=== PATIENT | female | born 1955 | race African-American/Black ===

== ENCOUNTER 2016-09-11 10:30 | Observation (INO) ==
[2016-09-11] MEDS ORDERED: ONDANSETRON 4 MG/2 ML VIAL IV STA (11:36)
[2016-09-11] MEDS ORDERED: ONDANSETRON 4 MG/2 ML VIAL ONE (11:37)
--- NOTE | 2016-09-11 12:07 | EKG Report ---
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
--- NOTE | 2016-09-11 13:05 | CT Report ---
Referring physician: Jessica Douglas Exam: CT brain without contrast Date: 09/11/2016 Comparison: None Reason: Headache, syncope Technique: Axial images of the head were obtained without the use of contrast. Total DLP was 970.10 mGy*cm. Findings: No hydrocephalus or midline shift is present. There is no evidence of an acute infarction, recent intracranial hemorrhage or abnormal mass effect. The osseous structures appear intact. The mastoid air cells and visualized paranasal sinuses are clear. Impression: No acute intracranial abnormality is identified. The CT exam was performed using one or more of the following dose reduction techniques: Automated exposure control and adjustment of the mA and/or kV according to patient size. PROCEDURE INTERPRETED AT [facility] DEPARTMENT OF RADIOLOGY Final Report Signed by: Dr. Isi Santiago
--- NOTE | 2016-09-11 13:09 | XRay Report ---
Exam: Chest 2 views Date: September 11, 2016 Comparison: Chest PA lateral April 22, 2008 Reason: Chest pain, syncope Findings: The cardiac silhouette is normal in size. No focal consolidation, pneumothorax or pleural effusion is identified. There is mild degenerative change at the thoracic spine, but no acute osseous process is seen. Surgical clips are noted within the right abdomen. Impression: No acute cardiopulmonary process is identified. PROCEDURE INTERPRETED AT [facility] DEPARTMENT OF RADIOLOGY Final Report Signed by: Dr. Paris Cuevas
[2016-09-11] MEDS ORDERED: ASPIRIN EC 325 MG TABLET PO STA (13:54)
[2016-09-11] MEDS ORDERED: ASPIRIN 325 MG TABLET ONE (14:09)
--- NOTE | 2016-09-11 14:25 | Emergency Department Note ---
Arrival - Arrival Chief Complaint: Dizziness Stated Complaint: nause,faint dizzy ED Nursing Triage Note: PT C/O DIZZINESS AND SYNCOPAL EPISODES 3-4 TIMES OVER THE PAST MONTH SINCE STARTING HARVONI FOR HEPATITS C. +NAUSEA. LAST EPISODE YESTERDAY. Mode of Arrival: Ambulatory Source: Patient Time Seen by Provider: 09/11/16 11:20 - History of Present Illness HPI Narrative: 61 y/o black female presents to the ER complaining of headache, nausea, dizziness, syncope, and midsternal chest pain. Symptom started 6 weeks ago after patient started taking Harvoni. Reports she has had 4 syncopal episodes in the last 6 weeks with the most recent episode happening yesterday. Chest pain has been intermittent. Patient describes chest pain as a "dull ache". Denies radiation of pain but reports dyspnea when climbing stairs. Past medical history significant for HTN, Hepatitis C, NIDDM, hypothyroidism, depression, chronic back pain. Primary Care Physician: Dr. Mathur Onset (ago): week(s) (4-6) Severity: mild Allergies/Adverse Reactions: Allergies Allergy/AdvReac Type Severity Reaction Status Date / Time morphine AdvReac Mild ITCHING Verified 09/11/16 10:41 Home Medications: Home Medications Medication Instructions Recorded Confirmed Type Atenolol 100 mg PO DAILY 09/11/16 09/11/16 History Carvedilol 25 mg PO DAILY 09/11/16 09/11/16 History Fluoxetine HCl 40 mg PO BID 09/11/16 09/11/16 History Gabapentin Cap/Tab [Neurontin 600 mg PO TID 09/11/16 09/11/16 History Cap/Tab] Ledipasvir/Sofosbuvir [Harvoni 1 each PO DAILY 09/11/16 09/11/16 History 90-400 mg Tablet] Levothyroxine Tab [Synthroid Tab] 25 mcg PO DAILY@0700 09/11/16 09/11/16 History Liraglutide [Victoza 2-Hai] 1.8 mg SUBCUT DAILY 09/11/16 09/11/16 History Lisinopril/Hydrochlorothiazide 1 each PO DAILY 09/11/16 09/11/16 History [Lisinopril-Hctz 20-12.5 mg Tab] Omeprazole 20 mg PO BID 09/11/16 09/11/16 History Oxycodone HCl/Acetaminophen 1 each PO QID PRN 09/11/16 09/11/16 History [Percocet 10-325 mg Tablet] Potassium Chloride [Klor-Con M20] 20 meq PO DAILY 09/11/16 09/11/16 History Promethazine Tab [Phenergan Tab] 25 mg PO Q4H PRN 09/11/16 09/11/16 History QUEtiapine [SEROquel] 100 mg PO BID 09/11/16 09/11/16 History buPROPion XL [Wellbutrin Xl] 300 mg PO DAILY 09/11/16 09/11/16 History metFORMIN [Glucophage] 500 mg PO BID W/MEALS 09/11/16 09/11/16 History Review of System - Review of System 12 point system: reviewed and no additional remarkable complaints except as stated - Review of System Gastrointestinal: Present: nausea Neurological: Present: other (dizziness, syncope ) Medical,Surgical,& Family Hx - Medical History Cardio: History of: Hypertension Psychological: History of: Depression Endocrine: History of: Diabetes Mellitus (NIDDM), Thyroid Disorder Gastrointestinal: History of: Hepatitis (C) Musculoskeletal: History of: Back/Neck Problems - Social History Smoking Status: Never smoker Frequency of Alcohol Use: None Type of Drug Use: None Exam Vital Signs: Vital Signs Temperature 97.7 F 09/11/16 11:32 Pulse Rate 70 09/11/16 14:25 Respiratory Rate 20 09/11/16 14:25 Blood Pressure 143/97 09/11/16 14:25 O2 Sat by Pulse Oximetry 100 09/11/16 14:25 - General General appearance: alert, in no apparent distress - ENT ENT exam: Present: normal exam, normal oropharynx, mucous membranes moist - Chest Chest inspection: Present: normal inspection - Respiratory Respiratory exam: Present: normal lung sounds bilaterally - Cardiovascular Cardiovascular exam: Present: regular rate, normal rhythm, normal heart sounds - Abdominal Exam Abdominal exam: Present: soft, normal bowel sounds. Absent: tenderness - Extremities Exam Extremities exam: Present: normal inspection, full ROM - Neurological Exam Neurological exam: Present: alert, oriented X3, CN II-XII intact - Psychiatric Psychiatric exam: Present: normal affect, normal mood - Skin Skin exam: Present: warm, dry Course Course Narrative: 1400: unable to obtain IV access. Awaiting on PICC line placement 1610: Patient to IR for PICC line placement - Consultations Consultation #1: [id number] Time: 14:20 (Will admit to hospitalist. They will come and evaluate patient after labwork is back. ) Results - Labs CBC & BMP: 09/11/16 15:23 09/11/16 15:23 Lab Results: I have reviewed the patients labs - EKG EKG results: WNL - Diagnostic Findings Procedure: Chest x-ray: image reviewed by me, report reviewed by me (CXR: no acute abnormality ), CT: image reviewed by me, report reviewed by me (No acute intracranial abnormality is identified) Disposition Clinical Impression: Chest pain, Syncope Case discussed with: patient Disposition: Still a Patient
[2016-09-11 15:33] LABS: Basophils % 0.4 % (0.0-0.8); Eosinophils # 0.2 10*3/uL (0.0-0.87); Eosinophils % 3.9 % (0.00-10.9); Hematocrit 32.1 VOL% (35.7-47.0); Hemoglobin 10.3 GM/DL (12.0-16.0); Immature Granulocytes % 0.2 %; Immature Granulocytes Absolute 0.01 #; Lymphocytes # 2.3 10*3/uL (1.4-4.0); Lymphocytes % 45.9 % (21.3-54.2); Mean Corpuscular HGB Conc 32.1 GM/DL (32-36); Mean Corpuscular Hemoglobin 24 PG (27-34); Mean Corpuscular Volume 74.1 FL (87-102); Mean Platelet Volume 11.5 FL (9.6-12.0); Monocytes # 0.3 10*3/uL (0.11-0.8); Monocytes % 6.1 % (1.7-12.7); Neutrophils # 2.2 10*3/uL (1.4-7.4); Neutrophils % 43.5 % (38.7-73.9); Platelet Count 139 T/CUMM (130-400); Red Blood Count 4.33 MC/CUMM (3.8-5.5); Red Cell Distribution Width 14.9 % (9.3-17.3); White Blood Count 5.1 T/CUMM (4-12)
[2016-09-11 16:00] LABS: Alanine Aminotransferase 71 U/L (13-56); Albumin 3.3 G/DL (3.4-5.0); Alkaline Phosphatase 50 U/L (45-117); Aspartate Amino Transferase 88 U/L (0-37); Blood Urea Nitrogen 16 MG/DL (7-18); Calcium 9.2 MG/DL (8.5-10.1); Glucose 77 MG/DL (74-106); Osmolality,Calculated 278.4 MOS/KG (273-304); Potassium 4.6 MMOL/L (3.5-5.1); Sodium 140 MMOL/L (136-145); Total Protein 7.7 G/DL (6.4-8.3); Troponin I Only < 0.015 NG/ML (0.00-0.045)
[2016-09-11] MEDS ORDERED: KETOROLAC 30 MG/1 ML VIAL ONE (16:47)
[2016-09-11] MEDS ORDERED: KETOROLAC 30 MG/1 ML VIAL IV STA (16:47)
--- NOTE | 2016-09-11 16:49 | Post Interventional Procedure ---
Pre-op diagnosis: difficult venous access Post-op diagnosis: same Procedure: PICC placement Contrast: none Flouroscopy: 0.1 min Radiologist: Sharath Page Anesthesia: local Specimens: none sent Estimated blood loss: minimal (3 mL) Complications: none Condition: stable Description/Findings: 5 [place]ian dual lumen power PICC line placed via the left basilic vein. The catheter is ready for use. Assessment and Plan - Time spent with patient Time spent with patient: Less than 30 minutes
--- NOTE | 2016-09-11 16:54 | Interventional Radiology Rpt ---
IR PICC line insertion, US guide vascular access IR PICC Placement Peripherally-inserted central catheter (PICC) placement using ultrasound and fluoroscopic guidance Ultrasound of the left upper extremity Clinical Information: 61-year-old female with difficult/poor venous access and unable to obtain blood for analysis. Hepatitis C, dizziness Physician: Dr. Page Procedure: The patient was advised of the benefits, risks, and alternatives of the procedure and informed consent was obtained. A time out was performed with verification of the patient's name, MRN, site of procedure, and type of procedure to be performed. The patient was positioned in the supine position on the angiographic table. The site was prepped and draped in the usual sterile fashion. Additionally, maximal sterile barrier technique was employed for the procedure. A quality compliance consultant radiograph reveals no relevant abnormality. Ultrasound examination of the left arm demonstrates patent and compressible brachial and basilic veins. The left arm was prepped and draped in the usual sterile fashion. The left basilic vein was again identified. Using ultrasound guidance, a 21 gauge needle was used to access the vein. A permanent ultrasound recording of vascular access was obtained for the patient's record. A 0.018" cope wire was then advanced into the vein. The needle was exchanged for a 5 Czech peel-away sheath. A 5 Czech double lumen Bard Solo PICC catheter was measured and trimmed to the 40 cm cody. The PICC line was advanced through the sheath and into the central circulation. The catheter tip was positioned at the cavo-atrial junction. The peel-away sheath was then removed. At the conclusion of the procedure, the catheter was secured in place using a Stat-Lock device. A sterile dressing was applied. The lumens aspirate and flush freely. The catheter is ready for immediate use. The patient tolerated the procedure well and was returned to the PRU in stable condition. EBL: < 5 mL. Complications: None. Fluoroscopy time: 0.1 minutes Conclusion: Successful placement of a 5 Czech double lumen Bard Solo power injectable PICC via the left basilic vein. The catheter is ready for immediate use. PROCEDURE INTERPRETED AT [facility] DEPARTMENT OF RADIOLOGY Final Report Signed by: Sharath Page
[2016-09-11] MEDS ORDERED: DOCUSATE SODIUM 100 MG CAPSULE PO PRN (17:29)
--- NOTE | 2016-09-11 18:04 | Hospitalist History & Physical ---
Assessment and Plan (1) Syncope Status: Acute Assessment and plan: The patient really feels like the main part of this is dizziness that leads to wear she's about to fall out but she never loses consciousness. She is wondering if this is due to her harvoni. Dizziness happens in about 5% of these patients. CT head was unremarkable. Chest x-ray was unremarkable I think that it very well could be done or medicine however we'll do orthostatic vitals were going to watch telemetry and get echocardiogram Current Visit: Yes (2) Chest pain Status: Acute Assessment and plan: I don't think this is cardiac chest pain but I'll get serial isoenzymes Current Visit: Yes (3) Headache Status: Acute Assessment and plan: Think this is most likely due to her harvoni treat symptomatically. At least 11 % of the patient get this side effect Current Visit: Yes History of Present Illness Chief complaint: syncope History of present illness: Ms. Medina is a 61 year old female who presents with syncope. His been going on for approximately 6 weeks since starting her hard bony she's had 4 separate episodes. Last episode was associated with some chest pain the chest pain did not radiate and was not showed associated with diaphoresis was not associated with throwing up and was not associated with shortness of breath she did note that she had some chest chest pain that was dull she had no palpitations she has had some palpitations no fever chills nausea vomiting diarrhea constipation or other complaints no diarrhea no other associated point nothing seems to be associated with the syncope nothing seems to make it better. She does not lose consciousness with the syncope is really more dizziness and she does not have bowel bladder incontinence Home Medications Medication Instructions Recorded Confirmed Type Atenolol 100 mg PO DAILY 09/11/16 09/11/16 History Carvedilol 25 mg PO DAILY 09/11/16 09/11/16 History Fluoxetine HCl 40 mg PO BID 09/11/16 09/11/16 History Gabapentin Cap/Tab [Neurontin 600 mg PO TID 09/11/16 09/11/16 History Cap/Tab] Ledipasvir/Sofosbuvir [Harvoni 1 each PO DAILY 09/11/16 09/11/16 History 90-400 mg Tablet] Levothyroxine Tab [Synthroid Tab] 25 mcg PO DAILY@0700 09/11/16 09/11/16 History Liraglutide [Victoza 2-Hai] 1.8 mg SUBCUT DAILY 09/11/16 09/11/16 History Lisinopril/Hydrochlorothiazide 1 each PO DAILY 09/11/16 09/11/16 History [Lisinopril-Hctz 20-12.5 mg Tab] Omeprazole 20 mg PO BID 09/11/16 09/11/16 History Oxycodone HCl/Acetaminophen 1 each PO QID PRN 09/11/16 09/11/16 History [Percocet 10-325 mg Tablet] Potassium Chloride [Klor-Con M20] 20 meq PO DAILY 09/11/16 09/11/16 History Promethazine Tab [Phenergan Tab] 25 mg PO Q4H PRN 09/11/16 09/11/16 History QUEtiapine [SEROquel] 100 mg PO BID 09/11/16 09/11/16 History buPROPion XL [Wellbutrin Xl] 300 mg PO DAILY 09/11/16 09/11/16 History metFORMIN [Glucophage] 500 mg PO BID W/MEALS 09/11/16 09/11/16 History Allergies Allergy/AdvReac Type Severity Reaction Status Date / Time morphine AdvReac Mild ITCHING Verified 09/11/16 10:41 Medical,Surgical,& Family Hx - Medical History Cardio: History of: Hypertension Psychological: History of: Depression Endocrine: History of: Diabetes Mellitus (NIDDM), Dyslipidemia, Thyroid Disorder Gastrointestinal: History of: Bowel Obstruction (resection), Hepatitis (C), GI Problems (IBS with constipation) Musculoskeletal: History of: Back/Neck Problems - Surgical History Reproductive Surgeries: Surgical HX of;: Section (3X), Hysterectomy - Family History Family History: Reports;: Family Cancer (mother-breast, father-brain), Family Diabetes (brothers and a sister), Family Heart Disease (father), Family Hypertension (father) - Social History Smoking Status: Never smoker Frequency of Alcohol Use: None Type of Drug Use: None Review of systems: Constitutional: No fatigue or fever Eyes: No loss of vision or blurred vision Ears: No decreased hearing no ear pain Mouth no lip swelling or sore throat Cardiovascular no chest pain no claudication Respiratory no cough or shortness of breath GI no abdominal pain or bloating or bleeding : No urinary frequency or hesitancy musculoskeletal: No Arthralgias or back pain Psychiatric: Confusion memory loss Endocrine: No polydipsia or polyuria Hematology: No easy bleeding or bruising 12 point review of systems otherwise unremarkable Exam - Constitutional Vitals: Period Temp Pulse Resp BP Sys/Kaplan Pulse Ox Last 24 Hr 97.8 F 87 18 155/84 Exam: Constitutional: Patient in no apparent distress. Eyes: Conjunctivae and lids are normal Pupils equal round react to light and accommodation irises are normal HEENT: External ears and nose without lesions masses or scarring Oropharynx without erythema exudates or thrush Neck is supple without masses no jugular venous distention Lungs: Lungs are clear to auscultation and resonant percussion Cardiovascular: Heart auscultation regular rate and rhythm without murmur rub or gallop PMI in the midclavicular line by palpation carotid arteries 2+ without bruits bowel abdomen: Bowel sounds normoactive no masses no rebound or regular tenderness no organomegaly Lymphatic: No anterior posterior cervical or axillary adenopathy Musculoskeletal: No active synovitis no malalignment of the joints good range of motion of upper and lower extremities Skin : normal to inspection and palpation Neurologic: Cranial nerves II through XII intact motor sensory intact DTRs 2+ negative cerebellar signs Psychiatric: Oriented to person place and time normal memory normal mood and affect normal judgment Results - Labs CBC & BMP: 09/11/16 15:23 09/11/16 15:23
[2016-09-11] MEDS: metFORMIN 500 MG TABLET PO SCH (18:05)
[2016-09-11] MEDS: SODIUM CHLORIDE 0.9% 1,000 ML IV SCH (18:05)
[2016-09-11] MEDS: oxyCODONE/ACETAMINOPHEN 5-325 MG TABLET PO PRN (18:07)
[2016-09-11 19:18] LABS: Troponin I Only < 0.015 NG/ML (0.00-0.045)
--- NOTE | 2016-09-11 19:22 | Ultrasound Report ---
US carotid duplex BI Indication: Syncope. Comparison: Carotid ultrasound dated February 01, 2008. Technique: Multiple longitudinal and transverse real-time sonographic images of the bilateral carotid arterial systems are obtained with grayscale, spectral, and color Doppler analysis. Findings: Peak systolic velocities within the right CCA, proximal ICA, and distal ICA are 76, 77, and 83 cm/s respectively. Peak systolic velocities within the left CCA, proximal ICA, and distal ICA are 100, 81, and 100 cm/s respectively. ICA/CCA ratios on the right and left are 1.1 and 1.0 respectively. Antegrade flow demonstrated within the bilateral vertebral arteries. Grayscale imaging demonstrates minimal bilateral atherosclerotic plaque. IMPRESSION: No convincing sonographic evidence of significant (50% or greater) narrowing of either cervical internal carotid artery. NASCET criteria utilized. PROCEDURE INTERPRETED AT [facility] DEPARTMENT OF RADIOLOGY Final Report Signed by: Dr Larry Castillo
[2016-09-11] MEDS: ONDANSETRON 4 MG/2 ML VIAL IV PRN (20:10)
[2016-09-11] MEDS: GABAPENTIN 600 MG TABLET PO SCH (20:10)
[2016-09-11] MEDS: BUTALBITAL/ACETAMIN/CAFFEINE 50-325-40 MG TABLET PO PRN (21:08)
[2016-09-12] MEDS: SODIUM CHLORIDE 0.9% 1,000 ML IV SCH ×4 (02:16→21:06)
[2016-09-12] MEDS: BUTALBITAL/ACETAMIN/CAFFEINE 50-325-40 MG TABLET PO PRN ×4 (02:57→22:19)
[2016-09-12] MEDS: ONDANSETRON 4 MG/2 ML VIAL IV PRN (04:19)
[2016-09-12 04:24] LABS: Basophils % 0.4 % (0.0-0.8); Eosinophils # 0.2 10*3/uL (0.0-0.87); Eosinophils % 3.3 % (0.00-10.9); Hematocrit 27.9 VOL% (35.7-47.0); Hemoglobin 9.2 GM/DL (12.0-16.0); Immature Granulocytes % 0.2 %; Immature Granulocytes Absolute 0.01 #; Lymphocytes # 2.5 10*3/uL (1.4-4.0); Lymphocytes % 52.3 % (21.3-54.2); Mean Corpuscular Hemoglobin 24 PG (27-34); Mean Corpuscular Volume 72.8 FL (87-102); Mean Platelet Volume 10.2 FL (9.6-12.0); Monocytes # 0.4 10*3/uL (0.11-0.8); Monocytes % 7.3 % (1.7-12.7); Neutrophils # 1.7 10*3/uL (1.4-7.4); Neutrophils % 36.5 % (38.7-73.9); Platelet Count 118 T/CUMM (130-400); Red Blood Count 3.83 MC/CUMM (3.8-5.5); White Blood Count 4.8 T/CUMM (4-12)
[2016-09-12 04:50] LABS: Eosinophils 1 % (0-10); Lymphocytes 49 % (20-55); Segmented Neutrophils 46 % (50-85); Total Cells Counted 100
[2016-09-12 04:55] LABS: Platelet Estimate Normal; Target Cells 1+
[2016-09-12 04:56] LABS: Elliptocytes Few
[2016-09-12 05:06] LABS: Troponin I Only < 0.015 NG/ML (0.00-0.045)
[2016-09-12 05:13] LABS: Albumin 2.8 G/DL (3.4-5.0); Bilirubin,Total 0.8 MG/DL (0.2-1.0); Calcium 8.2 MG/DL (8.5-10.1); Magnesium 1.2 MG/DL (1.8-2.4); Osmolality,Calculated 287.8 MOS/KG (273-304); Risk Ratio 2.51; Thyroid Stimulating Hormone 1.2 uIU/ml (0.358-3.74); VLDL CHOLESTEROL 12.4 MG/DL
[2016-09-12] MEDS: LEVOTHYROXINE 25 MCG TABLET PO SCH (06:47)
[2016-09-12] MEDS ORDERED: MAGNESIUM SULF RIDER 4 GM in PREMIX 1 EACH IV ONE (07:05)
--- NOTE | 2016-09-12 07:34 | EKG Report ---
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
[2016-09-12] MEDS ORDERED: PANTOPRAZOLE 40 MG TABLET PO SCH (09:00)
[2016-09-12] MEDS: oxyCODONE/ACETAMINOPHEN 5-325 MG TABLET PO PRN ×3 (09:30→22:19)
[2016-09-12] MEDS: metFORMIN 500 MG TABLET PO SCH ×2 (09:30→18:23)
[2016-09-12] MEDS: GABAPENTIN 600 MG TABLET PO SCH ×3 (09:31→20:24)
[2016-09-12 11:36] LABS: Troponin I Only < 0.015 NG/ML (0.00-0.045)
[2016-09-12] MEDS ORDERED: SUMAtriptan 25 MG TABLET PO ONE (12:16)
[2016-09-12] MEDS ORDERED: SUMAtriptan 6 MG/0.5 ML VIAL SUBCUT ONE (12:16)
[2016-09-12] MEDS ORDERED: diphenhydrAMINE 50 MG/1 ML VIAL IV ONE (12:16)
[2016-09-12] MEDS ORDERED: METOCLOPRAMIDE 10 MG/2 ML VIAL IV ONE (12:16)
[2016-09-12] MEDS ORDERED: PROMETHAZINE 25 MG TABLET PO PRN (12:18)
--- NOTE | 2016-09-12 12:23 | Hospitalist Progress Note ---
Assessment and Plan (1) Migraine Status: Acute Assessment and plan: Imitrex ordered. Reglan and Benadryl IV. Follow-up echo. Current Visit: Yes Qualifiers: Intractability: intractable (2) Chest pain Status: Resolved Current Visit: Yes (3) Syncope Status: Acute Current Visit: Yes Qualifiers: Syncope type: unspecified Qualified Code(s): R55 - Syncope and collapse (4) Headache Status: Acute Current Visit: Yes Qualifiers: Headache chronicity pattern: episodic headache Intractability: intractable Hospitalist: Subjective Interval history: Patient seen and examined. She had a fall in the bathroom last night. She reports continued headache and dizziness with nausea. Symptoms began 2-3 days ago but have continued and worsened. CT of the brain was unremarkable. She describes migraine headache. Carotid ultrasound unremarkable. Echo underway. Exam - Constitutional Vitals: Period Temp Pulse Resp BP Sys/Kaplan Pulse Ox Last 24 Hr 97.7 F-98.8 F 80-87 12-20 119-156/60-92 96 General appearance: mild distress Exam: Constitutional System: Mild distress. No tremulousness. Head: Normocephalic, atraumatic. Ears, Nose and Throat System: No pain or tenderness. No epistaxis or discharge Eyes System: Pupils equal, round, and reactive. Extraocular muscles intact. Neck: Supple, without adenopathy, No jugular venous distention. No thyromegaly, neck mass, or prior surgery apparent. Respiratory System: Chest clear to auscultation. Cardiovascular System: Heart with regular rate and rhythm. No murmur. GI System: Abdomen soft, nontender. Normo active bowel sounds present. Musculoskeletal System: limbs with no pedal edema. Full distal pulses. Neurological System: No discernable sensory deficit. No aphasia Psychiatric System: Conversation is rational Results - Labs CBC & BMP: 09/12/16 03:49 09/12/16 03:49 Lab Results: I have reviewed the past 24 hour labs
[2016-09-12] MEDS: FLUoxetine 20 MG CAPSULE PO SCH ×2 (13:24→20:25)
[2016-09-12] MEDS: CARVEDILOL 25 MG TABLET PO SCH (13:25)
--- NOTE | 2016-09-12 14:23 | ECHO Report ---
Niya Medina Exam Date: 09/12/2016 10:05 Referring Physician: Technologist: Valeria Fraser RDCS Age: 61 Ht (in): 67 Wt (lb): 218 Gender: F Exam Location: [facility] Echo Indications: Syncope and collapse, Chest pain, unspecified, Essential (primary) hypertension, Headache, Hepatitis C, NIDDM BP: 132 / 89 HR: 85 Rhythm: Sinus Technical Quality: Good IMPRESSIONS Left ventricular ejection fraction is estimated at 60 %. Trace mitral valve regurgitation. Trace to mild tricuspid valve regurgitation. Tricuspid regurgitation velocities suggest a PAP of 40 mmHg. MEASUREMENTS (Male / Female) Normal Values 2D ECHO LV Diastolic Diameter PLAX 4.4 cm 4.2 - 5.9 / 3.9 - 5.3 cm LV Systolic Diameter PLAX 2.9 cm LV Fractional Shortening PLAX 35.4 % IVS Diastolic Thickness 0.7 cm 0.6 - 1.0 / 0.6 - 0.9 cm LVPW Diastolic Thickness 0.7 cm 0.6 - 1.0 / 0.6 - 0.9 cm RV Internal Dim ED PLAX 2.8 cm Aortic Root Diameter 3.1 cm LA Systolic Diameter LX 2.7 cm 3.0 - 4.0 / 2.7 - 3.8 cm DOPPLER TR Peak Velocity 273.0 cm/s TR Peak Gradient 29.8 mmHg FINDINGS Left Ventricle Normal left ventricular cavity size. Normal left ventricular wall thickness. Left ventricular ejection fraction is estimated at 60 %. Right Ventricle The right ventricle is normal in size and function. Right Atrium The right atrium is normal in size. Left Atrium The left atrium is normal in size. Mitral Valve Morphologically normal mitral valve. Trace mitral valve regurgitation. Aortic Valve Morphologically normal aortic valve without significant sclerosis or stenosis. There is no aortic regurgitation. Tricuspid Valve Morphologically normal tricuspid valve. Trace to mild tricuspid valve regurgitation. Tricuspid regurgitation velocities suggest a PAP of 40 mmHg. Pulmonic Valve Morphologically normal pulmonic valve without significant stenosis. There is no pulmonic regurgitation. Pericardium Normal pericardium without effusion. Aorta Normal ascending aorta dimension. Prasanna Echevarria MD (Electronically Signed) Final Date: 12 September 2016 14:22
[2016-09-12] MEDS ORDERED: METOCLOPRAMIDE 5 MG TABLET PO PRN (18:31)
[2016-09-12] MEDS: QUEtiapine 100 MG TABLET PO SCH (20:24)
[2016-09-12] MEDS: PANTOPRAZOLE 40 MG TABLET PO SCH (20:24)
[2016-09-13] MEDS: SODIUM CHLORIDE 0.9% 1,000 ML IV SCH ×2 (02:07→03:31)
[2016-09-13] MEDS: LEVOTHYROXINE 25 MCG TABLET PO SCH (06:29)
[2016-09-13] MEDS: oxyCODONE/ACETAMINOPHEN 5-325 MG TABLET PO PRN (06:29)
[2016-09-13] MEDS ORDERED: HARVONI PO SCH (09:00)
[2016-09-13] MEDS ORDERED: buPROPion XL 150 MG TABLET PO SCH (09:00)
[2016-09-13] MEDS ORDERED: VICTOZA (Liraglutide) 1.8 MG SUBCUT SCH (09:00)
[2016-09-13] MEDS ORDERED: LISINOPRIL/HCTZ 20-12.5 MG TABLET PO SCH (09:00)
[2016-09-13] MEDS ORDERED: POTASSIUM CHLORIDE 20 MEQ TABLET PO SCH (09:00)
[2016-09-13] MEDS: metFORMIN 500 MG TABLET PO SCH (09:14)
[2016-09-13] MEDS: GABAPENTIN 600 MG TABLET PO SCH (09:14)
[2016-09-13] MEDS: FLUoxetine 20 MG CAPSULE PO SCH (09:14)
[2016-09-13] MEDS: CARVEDILOL 25 MG TABLET PO SCH (09:15)
[2016-09-13] MEDS: PANTOPRAZOLE 40 MG TABLET PO SCH (09:15)
[2016-09-13] MEDS: QUEtiapine 100 MG TABLET PO SCH (09:15)
--- NOTE | 2016-09-13 10:36 | Discharge Summary ---
<Hawa Gusman - Last Filed: 09/13/16 10:33> Hospital Course - Hospital Course Hospital Course: Ms. Niya Medina is a 61-year-old -[place] female with history of hypertension, hepatitis C, diabetes, hypothyroidism, depression, and chronic back pain. Her primary care physician is Dr. Amezcua and Dr. Ivy has been following her for her hepatitis C. She recently started a new medicine called Rosina and since then she has had symptoms of syncope, dizziness, nausea and headaches. Patient's workup included head CT, echo, carotid Dopplers and bladder scan. These all have been negative. She did suffer migraine while here in the hospital she was given some Fioricet and this did help with her migraine. Today she is symptom-free and she has been ambulating in the room without any problems with dizziness or syncope. We will go ahead and discharge her home with a prescription for Fioricet as needed and a follow-up with Dr. Ivy in 1-2 weeks. - Time spent with patient Time with patient DS: Less than 30 minutes Diagnosis - Discharge Diagnosis (1) Syncope Status: Resolved (2) Migraine Status: Resolved Specialty Discharge - Follow Up or Referrals Follow up with: Bam Quiñonez MD [Physician] - Lul Ivy MD [Physician] - 1 Week Jairo Mathur MD [Physician] - Discharge Plan - Discharge Data Disposition: Disch To Home/Self Care Condition at Discharge: Stable Discharge Diet: advance to your usual diet Activity: resume usual activities as tolerated Hygiene: may shower Driving: no restrictions - Discharge Medications New SUMAtriptan TAB [Imitrex Tab] 25 mg PO DAILY PRN #10 tablet PRN Reason: Migraine Headache Butalbital/Acet/Caff 50-325-40 [Fioricet 50-325-40 mg Tablet] 2 tablet PO Q6H PRN #10 tablet PRN Reason: Headache Continue Ledipasvir/Sofosbuvir [Harvoni 90-400 mg Tablet] 1 each PO DAILY QUEtiapine [SEROquel] 100 mg PO BID Gabapentin Cap/Tab [Neurontin Cap/Tab] 600 mg PO TID Oxycodone HCl/Acetaminophen [Percocet 10-325 mg Tablet] 1 each PO QID PRN PRN Reason: Pain Promethazine Tab [Phenergan Tab] 25 mg PO Q4H PRN PRN Reason: Nausea/Vomiting Omeprazole 20 mg PO BID Fluoxetine HCl 40 mg PO BID Lisinopril/Hydrochlorothiazide [Lisinopril-Hctz 20-12.5 mg Tab] 1 each PO DAILY Potassium Chloride [Klor-Con M20] 20 meq PO DAILY metFORMIN [Glucophage] 500 mg PO BID W/MEALS buPROPion XL [Wellbutrin Xl] 300 mg PO DAILY Liraglutide [Victoza 2-Hai] 1.8 mg SUBCUT DAILY Levothyroxine Tab [Synthroid Tab] 25 mcg PO DAILY@0700 Carvedilol 25 mg PO DAILY - Follow Up or Referral Follow Up: Bam Quiñonez MD [Physician] - Lul Ivy MD [Physician] - 1 Week Jairo Mathur MD [Physician] - - Forms/Instructions Exam - Constitutional Vitals: Period Temp Pulse Resp BP Sys/Kaplan Pulse Ox Last 24 Hr 96.5 F-98.3 F 70-86 16-20 84-129/50-82 97-100 Exam: 61-year-old -[place] female, no acute distress, alert and oriented Chest clear CV regular rate and rhythm Abdomen obese, nontender Extremities with no edema Discharge Results Labs on day of discharge: Labs from last 24 hours 09/13/16 09/13/16 09/12/16 12:01 07:36 20:15 POC Glucose 161 H 103 95 09/12/16 15:36 POC Glucose 108 H DS: Provider Date of admission: 09/11/16 16:11 Primary care physician: . No PCP Attending physician on admission: Jose Luis Watson MD Consults: 09/11/16 17:42 Consult to Pharmacy [CONS] Routine Reason for Pharmacy Consult: Adjust Meds Renal Funct Discharging clinician: KIMBERLY Presley Expected date of discharge: 09/13/16 <Andrea Barrett Jr. - Last Filed: 09/13/16 13:15> Hospital Course - Hospital Course Hospital Course: I have seen and examined the patient and agree with discharge plan as stated. Patient states no further headaches at this time. No shortness of breath or chest pain. We will plan for discharge today. Diagnosis - Discharge Diagnosis (1) Chest pain Status: Resolved (2) Headache Status: Resolved Discharge Plan - Forms/Instructions Additional Discharge Instructions: The patient will follow up with her primary provider. Exam - Head Head exam: Present: normal inspection - Neck Neck exam: Present: normal inspection - Respiratory Respiratory exam: Present: clear to auscultation bilaterally - Cardiovascular Cardiovascular exam: Present: regular rate and rhythm - GI/Abdominal GI/Abdominal exam: Present: normal bowel sounds - Extremities Exam Extremities exam: Present: normal inspection, full ROM - Neurological Exam Neurological exam: Present: alert, oriented X3, CN II-XII intact - Skin Skin exam: Present: normal color, warm
[2016-09-13 12:19] VITALS: BP 103/64
== END 2016-09-13 14:31 | disposition home or self-care (01) ==
LOC: N.EDINP 10:30 → N.ED 10:30 → SUATTDRO 16:11 → N.EDINP 17:21 → N.TELEN 17:28
PROVIDERS: ADMIT Internal Medicine Cardiovascular Disease; ATTEND Family Medicine

== ENCOUNTER 2018-03-27 15:03 | Inpatient (IN) ==
[2018-03-27 15:50] LABS: Basophils % 0.3 % (0.0-0.8); Eosinophils # 0.1 10*3/uL (0.0-0.87); Eosinophils % 1.1 % (0.00-10.9); Hematocrit 36.1 VOL% (35.7-47.0); Hemoglobin 11.8 GM/DL (12.0-16.0); Immature Granulocytes % 0.4 %; Immature Granulocytes Absolute 0.04 #; Lymphocytes # 3.3 10*3/uL (1.4-4.0); Lymphocytes % 35.9 % (21.3-54.2); Mean Corpuscular HGB Conc 32.7 GM/DL (32-36); Mean Corpuscular Hemoglobin 24 PG (27-34); Mean Corpuscular Volume 72.6 FL (87-102); Monocytes # 0.8 10*3/uL (0.11-0.8); Monocytes % 8.3 % (1.7-12.7); Neutrophils # 4.9 10*3/uL (1.4-7.4); Platelet Count 181 T/CUMM (130-400); Red Blood Count 4.97 MC/CUMM (3.8-5.5); Red Cell Distribution Width 17.6 % (9.3-17.3); White Blood Count 9.1 T/CUMM (4-12)
[2018-03-27 16:20] LABS: Albumin 3.4 G/DL (3.4-5.0); Bilirubin,Total 0.9 MG/DL (0.2-1.0); Calcium 9.1 MG/DL (8.5-10.1); Osmolality,Calculated 285.3 MOS/KG (273-304); Potassium 3.6 MMOL/L (3.5-5.1); Total Protein 8.1 G/DL (6.4-8.3)
[2018-03-27] MEDS ORDERED: ONDANSETRON 4 MG/2 ML VIAL IV STA (16:54)
[2018-03-27] MEDS ORDERED: SODIUM CHLORIDE 0.9% 1,000 ML IV STA (16:54)
[2018-03-27] MEDS ORDERED: KETOROLAC 30 MG/1 ML VIAL IV STA (18:51)
[2018-03-27 19:39] LABS: Apearance,Urine Slightly Hazy (Clear); Bilirubin,Urine Negative (Negative); Blood, Urine Negative (Negative); Glucose,Urine (UA) Negative (Negative); Ketones,Urine Negative (Negative); Mucus,Urine Occasional /LPF (Occasional); Nitrite,Urine Negative (Negative); Protein,Urine Negative; Squamous Epithelial Cell,Urine Occasional /HPF (0-10); Urine Color Yellow (Yellow); Urine Specific Gravity 1.021 (1.001-1.035); WBC,Urine 13 /HPF (0-6)
[2018-03-27] MEDS ORDERED: MEPERIDINE 50 MG/1 ML VIAL ONE (19:49)
[2018-03-27] MEDS ORDERED: MEPERIDINE 50 MG/1 ML VIAL IV STA (19:50)
[2018-03-27] MEDS ORDERED: DEXTROSE 50% 25 GM/50 ML VIAL IV PRN (21:50)
[2018-03-27] MEDS ORDERED: hydrALAZINE 20 MG/1 ML VIAL IV PRN (21:50)
[2018-03-27] MEDS ORDERED: GLUCAGON 1 MG VIAL IM PRN (21:50)
[2018-03-27] MEDS: SODIUM CHLORIDE 0.45% 1,000 ML IV SCH (22:24)
[2018-03-27] MEDS: metroNIDAZOLE INJ 500 MG in PREMIX 1 EACH IV SCH (22:32)
[2018-03-27] MEDS: CARVEDILOL 6.25 MG TABLET PO SCH (22:34)
[2018-03-27] MEDS: GABAPENTIN 600 MG TABLET PO SCH (22:34)
[2018-03-27] MEDS: FLUoxetine 20 MG CAPSULE PO SCH (22:34)
[2018-03-27] MEDS: CYCLOBENZAPRINE 10 MG TABLET PO SCH (22:35)
[2018-03-27] MEDS: QUEtiapine 100 MG TABLET PO SCH (22:35)
[2018-03-28] MEDS ORDERED: INFLUENZA VIRUS VACCINE 0.5 ML SYRINGE IM ONE (00:25)
[2018-03-28] MEDS: INSULIN REGULAR 100 UNIT/ML SUBCUT SCH ×5 (00:27→23:37)
[2018-03-28] MEDS: ONDANSETRON 4 MG/2 ML VIAL IV PRN ×3 (03:43→21:45)
[2018-03-28] MEDS: KETOROLAC 30 MG/1 ML VIAL IV PRN (03:43)
[2018-03-28 05:29] LABS: Basophils % 0.3 % (0.0-0.8); Eosinophils # 0.1 10*3/uL (0.0-0.87); Eosinophils % 1.6 % (0.00-10.9); Hematocrit 30.2 VOL% (35.7-47.0); Hemoglobin 9.5 GM/DL (12.0-16.0); Immature Granulocytes % 0.3 %; Immature Granulocytes Absolute 0.02 #; Lymphocytes # 3.6 10*3/uL (1.4-4.0); Lymphocytes % 49.2 % (21.3-54.2); Mean Corpuscular HGB Conc 31.5 GM/DL (32-36); Mean Corpuscular Hemoglobin 23 PG (27-34); Mean Corpuscular Volume 73.5 FL (87-102); Mean Platelet Volume 10.9 FL (9.6-12.0); Monocytes # 0.6 10*3/uL (0.11-0.8); Monocytes % 7.8 % (1.7-12.7); Neutrophils % 40.8 % (38.7-73.9); Platelet Count 140 T/CUMM (130-400); Red Blood Count 4.11 MC/CUMM (3.8-5.5); Red Cell Distribution Width 17.3 % (9.3-17.3); White Blood Count 7.3 T/CUMM (4-12)
[2018-03-28 05:48] LABS: Albumin 2.6 G/DL (3.4-5.0); Calcium 7.5 MG/DL (8.5-10.1); Osmolality,Calculated 288.1 MOS/KG (273-304); Potassium 3.5 MMOL/L (3.5-5.1); Risk Ratio 2.15; Total Protein 6.2 G/DL (6.4-8.3); VLDL CHOLESTEROL 23.2 MG/DL
[2018-03-28] MEDS: metroNIDAZOLE INJ 500 MG in PREMIX 1 EACH IV SCH (06:20)
[2018-03-28] MEDS: SODIUM CHLORIDE 0.45% 1,000 ML IV SCH ×4 (06:20→23:10)
[2018-03-28] MEDS: LEVOTHYROXINE 25 MCG TABLET PO SCH (06:20)
[2018-03-28] MEDS: CYCLOBENZAPRINE 10 MG TABLET PO SCH ×2 (08:51→21:44)
[2018-03-28] MEDS: PANTOPRAZOLE 40 MG TABLET PO SCH (08:51)
[2018-03-28] MEDS: FLUoxetine 20 MG CAPSULE PO SCH ×2 (08:51→21:44)
[2018-03-28] MEDS: QUEtiapine 100 MG TABLET PO SCH ×3 (08:52→21:44)
[2018-03-28] MEDS: CHOLECALCIFEROL 400 UNIT TABLET PO SCH (08:52)
[2018-03-28] MEDS: CARVEDILOL 6.25 MG TABLET PO SCH ×2 (08:52→21:44)
[2018-03-28] MEDS: GABAPENTIN 600 MG TABLET PO SCH ×4 (08:52→21:44)
[2018-03-28] MEDS: LISINOPRIL/HCTZ 20-12.5 MG TABLET PO SCH (08:52)
[2018-03-28] MEDS: FERROUS SULFATE 325 MG TABLET PO SCH (08:52)
[2018-03-28] MEDS ORDERED: MEPERIDINE 50 MG/1 ML VIAL IM ONE (08:57)
[2018-03-28] MEDS ORDERED: PROMETHAZINE 25 MG/1 ML VIAL IM ONE (08:58)
[2018-03-28] MEDS: ENOXAPARIN 40 MG/0.4 ML SYRINGE SUBCUT SCH (08:59)
[2018-03-28] MEDS ORDERED: NON-FORMULARY MEDICATION (Meloxicam [Meloxicam] 15 MG) PO SCH (09:00)
[2018-03-28] MEDS ORDERED: NON-FORMULARY MEDICATION (Liraglutide [Victoza 2-Pak] 1.8 MG) SUBCUT SCH (09:00)
[2018-03-28] MEDS: cefTRIAXone 1,000 MG in SYRINGE 1 EACH IV SCH (10:42)
[2018-03-28] MEDS: HYDROmorphone 2 MG/1 ML VIAL IV PRN ×3 (14:08→21:45)
[2018-03-28] MEDS: COLESTIPOL 1 GM TABLET PO SCH (21:44)
[2018-03-29] MEDS: ONDANSETRON 4 MG/2 ML VIAL IV PRN ×4 (01:32→21:08)
[2018-03-29] MEDS: INSULIN REGULAR 100 UNIT/ML SUBCUT SCH ×4 (05:18→23:24)
[2018-03-29] MEDS: LEVOTHYROXINE 25 MCG TABLET PO SCH (05:37)
[2018-03-29 06:48] LABS: Basophils % 0.2 % (0.0-0.8); Eosinophils # 0.2 10*3/uL (0.0-0.87); Eosinophils % 2.9 % (0.00-10.9); Hematocrit 32.6 VOL% (35.7-47.0); Hemoglobin 10.2 GM/DL (12.0-16.0); Immature Granulocytes % 0.2 %; Immature Granulocytes Absolute 0.01 #; Lymphocytes # 2.1 10*3/uL (1.4-4.0); Lymphocytes % 41.4 % (21.3-54.2); Mean Corpuscular HGB Conc 31.3 GM/DL (32-36); Mean Corpuscular Hemoglobin 23 PG (27-34); Mean Corpuscular Volume 73.4 FL (87-102); Mean Platelet Volume 10.9 FL (9.6-12.0); Monocytes # 0.4 10*3/uL (0.11-0.8); Monocytes % 7.4 % (1.7-12.7); Neutrophils # 2.5 10*3/uL (1.4-7.4); Neutrophils % 47.9 % (38.7-73.9); Platelet Count 120 T/CUMM (130-400); Red Blood Count 4.44 MC/CUMM (3.8-5.5); Red Cell Distribution Width 17.2 % (9.3-17.3); White Blood Count 5.2 T/CUMM (4-12)
[2018-03-29 07:11] LABS: Hypochromasia 1+
[2018-03-29 07:24] LABS: Calcium 7.6 MG/DL (8.5-10.1); Osmolality,Calculated 284.1 MOS/KG (273-304); Potassium 3.4 MMOL/L (3.5-5.1)
[2018-03-29 07:30] LABS: % Iron Saturation 22.1 % (18-50)
[2018-03-29] MEDS: SODIUM CHLORIDE 0.45% 1,000 ML IV SCH ×2 (08:43→20:13)
[2018-03-29] MEDS ORDERED: LIDOCAINE 1% 5 ML VIAL ONE (09:06)
[2018-03-29] MEDS ORDERED: PROPOFOL 200 MG/20 ML VIAL IV ONE (09:06)
[2018-03-29] MEDS: KETOROLAC 30 MG/1 ML VIAL IV PRN ×2 (10:40→16:25)
[2018-03-29] MEDS: COLESTIPOL 1 GM TABLET PO SCH ×2 (10:43→20:10)
[2018-03-29] MEDS: CYCLOBENZAPRINE 10 MG TABLET PO SCH ×2 (10:44→20:11)
[2018-03-29] MEDS: BISACODYL 5 MG TABLET PO SCH ×3 (10:45→16:30)
[2018-03-29] MEDS: FLUoxetine 20 MG CAPSULE PO SCH ×2 (10:45→20:10)
[2018-03-29] MEDS: CARVEDILOL 6.25 MG TABLET PO SCH ×2 (10:46→20:10)
[2018-03-29] MEDS: CHOLECALCIFEROL 400 UNIT TABLET PO SCH (10:46)
[2018-03-29] MEDS: GABAPENTIN 600 MG TABLET PO SCH ×4 (10:46→20:10)
[2018-03-29] MEDS: PANTOPRAZOLE 40 MG TABLET PO SCH (10:46)
[2018-03-29] MEDS: QUEtiapine 100 MG TABLET PO SCH ×2 (10:46→20:10)
[2018-03-29] MEDS: FERROUS SULFATE 325 MG TABLET PO SCH (10:47)
[2018-03-29] MEDS ORDERED: POTASSIUM CHLORIDE 20 MEQ TABLET PO ONE (10:50)
[2018-03-29] MEDS: LISINOPRIL/HCTZ 20-12.5 MG TABLET PO SCH (10:50)
[2018-03-29] MEDS: cefTRIAXone 1,000 MG in SYRINGE 1 EACH IV SCH (10:55)
[2018-03-29] MEDS: ENOXAPARIN 40 MG/0.4 ML SYRINGE SUBCUT SCH (11:07)
[2018-03-29] MEDS ORDERED: POLYETHYLENE GLYCOL POWDER 255 GM BOTTLE PO ONE (18:00)
[2018-03-29] MEDS ORDERED: MAGNESIUM CITRATE 300 ML BOTTLE PO ONE (21:00)
[2018-03-29] MEDS: HYDROmorphone 2 MG/1 ML VIAL IV PRN (21:04)
[2018-03-30] MEDS: KETOROLAC 30 MG/1 ML VIAL IV PRN (00:41)
[2018-03-30] MEDS: BISACODYL 5 MG TABLET PO SCH (01:19)
[2018-03-30] MEDS: ONDANSETRON 4 MG/2 ML VIAL IV PRN ×2 (01:19→20:52)
[2018-03-30] MEDS: HYDROmorphone 2 MG/1 ML VIAL IV PRN ×2 (04:19→20:48)
[2018-03-30] MEDS: SODIUM CHLORIDE 0.45% 1,000 ML IV SCH ×3 (05:20→22:15)
[2018-03-30] MEDS: INSULIN REGULAR 100 UNIT/ML SUBCUT SCH ×4 (05:55→23:40)
[2018-03-30] MEDS: LEVOTHYROXINE 25 MCG TABLET PO SCH (05:55)
[2018-03-30 06:38] LABS: Basophils % 0.4 % (0.0-0.8); Eosinophils # 0.3 10*3/uL (0.0-0.87); Eosinophils % 3.4 % (0.00-10.9); Hematocrit 34.8 VOL% (35.7-47.0); Hemoglobin 10.8 GM/DL (12.0-16.0); Immature Granulocytes % 0.5 %; Immature Granulocytes Absolute 0.04 #; Lymphocytes # 2.8 10*3/uL (1.4-4.0); Lymphocytes % 38.6 % (21.3-54.2); Mean Corpuscular Hemoglobin 23 PG (27-34); Mean Corpuscular Volume 73.9 FL (87-102); Mean Platelet Volume 11.3 FL (9.6-12.0); Monocytes # 0.5 10*3/uL (0.11-0.8); Monocytes % 6.5 % (1.7-12.7); Neutrophils # 3.7 10*3/uL (1.4-7.4); Neutrophils % 50.6 % (38.7-73.9); Platelet Count 169 T/CUMM (130-400); Red Blood Count 4.71 MC/CUMM (3.8-5.5); Red Cell Distribution Width 17.5 % (9.3-17.3); White Blood Count 7.3 T/CUMM (4-12)
[2018-03-30 06:47] LABS: Calcium 8.1 MG/DL (8.5-10.1); Osmolality,Calculated 280.3 MOS/KG (273-304); Potassium 3.7 MMOL/L (3.5-5.1)
[2018-03-30] MEDS: ENOXAPARIN 40 MG/0.4 ML SYRINGE SUBCUT SCH (08:31)
[2018-03-30] MEDS: GABAPENTIN 600 MG TABLET PO SCH ×4 (08:31→20:47)
[2018-03-30] MEDS: FERROUS SULFATE 325 MG TABLET PO SCH (08:31)
[2018-03-30] MEDS: QUEtiapine 100 MG TABLET PO SCH ×2 (08:31→20:48)
[2018-03-30] MEDS: LISINOPRIL/HCTZ 20-12.5 MG TABLET PO SCH (08:31)
[2018-03-30] MEDS: COLESTIPOL 1 GM TABLET PO SCH ×2 (08:31→20:47)
[2018-03-30] MEDS: CARVEDILOL 6.25 MG TABLET PO SCH ×2 (08:31→20:47)
[2018-03-30] MEDS: FLUoxetine 20 MG CAPSULE PO SCH ×2 (08:31→20:47)
[2018-03-30] MEDS: CHOLECALCIFEROL 400 UNIT TABLET PO SCH (08:31)
[2018-03-30] MEDS: CYCLOBENZAPRINE 10 MG TABLET PO SCH ×2 (08:31→20:48)
[2018-03-30] MEDS: PANTOPRAZOLE 40 MG TABLET PO SCH (08:31)
[2018-03-30] MEDS ORDERED: PHENYLEPHRINE 1 MG/10 ML SYRINGE IV ONE (10:00)
[2018-03-30] MEDS ORDERED: LIDOCAINE 1% 5 ML VIAL ONE (10:00)
[2018-03-30] MEDS ORDERED: PROPOFOL 200 MG/20 ML VIAL IV ONE (10:00)
[2018-03-30] MEDS: cefTRIAXone 1,000 MG in SYRINGE 1 EACH IV SCH (10:14)
[2018-03-30 15:01] LABS: Adenovirus F40/41 Negative (Negative); Astrovirus Negative (Negative); Cryptosporidium species Negative (Negative); Cyclospora cayetanensis Negative (Negative); Entamoeba histolytica Negative (Negative); Enteropathogenic E.coli (EPEC) Negative (Negative); Enterotoxigenic E. coli (ETEC) Negative (Negative); Norovirus GI/GII Negative (Negative); Plesiomonas shigelloides Negative (Negative); Salmonella species Negative (Negative); Sapovirus Negative (Negative); Shiga toxin producing E. coli Negative (Negative); Shigella/Enteroinvasive E.coli Negative (Negative); Specimen Source STOOL; Vibrio cholerae Negative (Negative); Yersinia enterocolitica Negative (Negative)
[2018-03-31] MEDS: HYDROmorphone 2 MG/1 ML VIAL IV PRN ×2 (02:08→08:50)
[2018-03-31] MEDS: ONDANSETRON 4 MG/2 ML VIAL IV PRN ×2 (02:12→08:50)
[2018-03-31 04:53] LABS: Basophils % 0.4 % (0.0-0.8); Eosinophils # 0.2 10*3/uL (0.0-0.87); Eosinophils % 2.8 % (0.00-10.9); Hematocrit 32.1 VOL% (35.7-47.0); Immature Granulocytes % 0.4 %; Immature Granulocytes Absolute 0.03 #; Lymphocytes # 3.3 10*3/uL (1.4-4.0); Lymphocytes % 42.4 % (21.3-54.2); Mean Corpuscular HGB Conc 31.2 GM/DL (32-36); Mean Corpuscular Hemoglobin 23 PG (27-34); Mean Corpuscular Volume 74.5 FL (87-102); Mean Platelet Volume 11.2 FL (9.6-12.0); Monocytes # 0.5 10*3/uL (0.11-0.8); Neutrophils # 3.6 10*3/uL (1.4-7.4); Platelet Count 155 T/CUMM (130-400); Red Blood Count 4.31 MC/CUMM (3.8-5.5); Red Cell Distribution Width 17.6 % (9.3-17.3); White Blood Count 7.7 T/CUMM (4-12)
[2018-03-31] MEDS: INSULIN REGULAR 100 UNIT/ML SUBCUT SCH ×2 (05:13→11:18)
[2018-03-31 05:16] LABS: Osmolality,Calculated 279.3 MOS/KG (273-304); Potassium 3.7 MMOL/L (3.5-5.1)
[2018-03-31] MEDS: LEVOTHYROXINE 25 MCG TABLET PO SCH (05:36)
[2018-03-31] MEDS: CYCLOBENZAPRINE 10 MG TABLET PO SCH (08:43)
[2018-03-31] MEDS: COLESTIPOL 1 GM TABLET PO SCH (08:44)
[2018-03-31] MEDS: PANTOPRAZOLE 40 MG TABLET PO SCH (08:44)
[2018-03-31] MEDS: QUEtiapine 100 MG TABLET PO SCH (08:44)
[2018-03-31] MEDS: FERROUS SULFATE 325 MG TABLET PO SCH (08:44)
[2018-03-31] MEDS: LISINOPRIL/HCTZ 20-12.5 MG TABLET PO SCH (08:44)
[2018-03-31] MEDS: CARVEDILOL 6.25 MG TABLET PO SCH (08:44)
[2018-03-31] MEDS: FLUoxetine 20 MG CAPSULE PO SCH (08:44)
[2018-03-31] MEDS: GABAPENTIN 600 MG TABLET PO SCH ×2 (08:44→14:53)
[2018-03-31] MEDS: CHOLECALCIFEROL 400 UNIT TABLET PO SCH (08:44)
[2018-03-31] MEDS: ENOXAPARIN 40 MG/0.4 ML SYRINGE SUBCUT SCH (08:45)
[2018-03-31] MEDS: cefTRIAXone 1,000 MG in SYRINGE 1 EACH IV SCH ×2 (08:53→10:52)
[2018-03-31] MEDS: SODIUM CHLORIDE 0.45% 1,000 ML IV SCH (11:33)
[2018-03-31 12:28] VITALS: BP 100/60
== END 2018-03-31 15:34 | disposition home or self-care (01) | DRG 392 ==
LOC: SUATTDRO → N.ED 15:03 → N.EDINP 18:57 → N.5E 21:14
PROVIDERS: ADMIT Internal Medicine; ATTEND Internal Medicine

== ENCOUNTER 2020-10-27 07:49 | Inpatient (IN) ==
[2020-10-27] MEDS ORDERED: SODIUM CHLORIDE 0.9% 1,000 ML IV STA (08:13)
[2020-10-27] MEDS ORDERED: HYDROmorphone 2 MG/1 ML VIAL IV STA (08:13)
[2020-10-27] MEDS ORDERED: ONDANSETRON 4 MG/2 ML VIAL IV STA (08:13)
[2020-10-27 09:23] LABS: Basophils % 0.5 % (0.0-0.8); Eosinophils # 0.3 10*3/uL (0.0-0.87); Eosinophils % 3.8 % (0.00-10.9); Hematocrit 37.2 VOL% (35.7-47.0); Hemoglobin 11.4 GM/DL (12.0-16.0); Immature Granulocytes % 0.4 %; Immature Granulocytes Absolute 0.03 #; Lymphocytes # 3.5 10*3/uL (1.4-4.0); Lymphocytes % 41.5 % (21.3-54.2); Mean Corpuscular HGB Conc 30.6 GM/DL (32-36); Mean Corpuscular Volume 77.2 FL (87-102); Mean Platelet Volume 10.3 FL (9.6-12.0); Monocytes % 9.8 % (1.7-12.7); Platelet Count 182 T/CUMM (130-400); Red Blood Count 4.82 MC/CUMM (3.8-5.5); Red Cell Distribution Width 16.9 % (9.3-17.3); White Blood Count 8.3 T/CUMM (4-12)
[2020-10-27 09:43] LABS: Alanine Aminotransferase 26 U/L (13-56); Albumin 3.5 G/DL (3.4-5.0); Alkaline Phosphatase 59 U/L (45-117); Aspartate Amino Transferase 30 U/L (0-37); Blood Urea Nitrogen 18 MG/DL (7-18); Calcium 9.1 MG/DL (8.5-10.1); Carbon Dioxide 29 MMOL/L (21-32); Estimated Glom Filtration Rate 35 ML/MIN; Glucose 136 MG/DL (74-106); Osmolality,Calculated 276.8 MOS/KG (273-304); Potassium 3.4 MMOL/L (3.5-5.1); Sodium 137 MMOL/L (136-145); Total Protein 8.3 G/DL (6.4-8.2)
[2020-10-27 13:36] LABS: Blood, Urine Negative (Negative); Glucose,Urine (UA) Negative (Negative); Hyaline Casts,Urine 205 /LPF (0-3); Ketones,Urine Negative (Negative); Mucus,Urine Occasional /LPF (Occasional); Nitrite,Urine Negative (Negative); Protein,Urine 30 MG/DL; RBC,Urine 1 /HPF (0-4); Squamous Epithelial Cell,Urine Occasional /HPF (0-10); Urine Appearance Slightly Hazy (Clear); Urine Color Amber (Yellow); Urine Specific Gravity 1.028 (1.001-1.035)
[2020-10-27 13:37] LABS: Bilirubin,Urine Small mg/dL (Negative)
[2020-10-27] MEDS ORDERED: GLUCAGON 1 MG VIAL IM PRN (14:13)
[2020-10-27] MEDS ORDERED: DEXTROSE 50% 25 GM/50 ML VIAL IV PRN (14:13)
[2020-10-27] MEDS ORDERED: hydrALAZINE 20 MG/1 ML VIAL IV PRN (14:13)
[2020-10-27] MEDS ORDERED: KETOROLAC 30 MG/1 ML VIAL IV PRN (14:17)
[2020-10-27] MEDS: SODIUM CHLOR 0.9% KCL 40 MEQ 40 MEQ/1,000 ML BAG IV SCH (15:34)
[2020-10-27] MEDS: INSULIN LISPRO 100 UNIT/ML SUBCUT SCH ×2 (16:13→20:05)
[2020-10-27] MEDS: ONDANSETRON 4 MG/2 ML VIAL IV PRN (18:19)
[2020-10-27] MEDS: ENOXAPARIN 40 MG/0.4 ML SYRINGE SUBCUT SCH (21:10)
[2020-10-27] MEDS: PANTOPRAZOLE 40 MG VIAL IV SCH (21:10)
[2020-10-27] MEDS: MEPERIDINE 25 MG/1 ML VIAL IV PRN (21:47)
[2020-10-28] MEDS: MEPERIDINE 25 MG/1 ML VIAL IV PRN ×2 (01:43→08:53)
[2020-10-28] MEDS: SODIUM CHLOR 0.9% KCL 40 MEQ 40 MEQ/1,000 ML BAG IV SCH ×3 (01:43→22:41)
[2020-10-28] MEDS: ONDANSETRON 4 MG/2 ML VIAL IV PRN ×2 (03:41→08:52)
[2020-10-28 06:17] LABS: Basophils % 0.4 % (0.0-0.8); Eosinophils # 0.2 10*3/uL (0.0-0.87); Eosinophils % 2.8 % (0.00-10.9); Hemoglobin 10.3 GM/DL (12.0-16.0); Immature Granulocytes % 0.4 %; Immature Granulocytes Absolute 0.02 #; Mean Corpuscular HGB Conc 31.2 GM/DL (32-36); Mean Corpuscular Volume 77.1 FL (87-102); Mean Platelet Volume 11.4 FL (9.6-12.0); Monocytes % 9.5 % (1.7-12.7); Neutrophils % 31.9 % (38.7-73.9); Platelet Count 148 T/CUMM (130-400); Red Blood Count 4.28 MC/CUMM (3.8-5.5); Red Cell Distribution Width 17.1 % (9.3-17.3); White Blood Count 5.4 T/CUMM (4-12)
[2020-10-28 06:48] LABS: Osmolality,Calculated 286.1 MOS/KG (273-304); Potassium 4.3 MMOL/L (3.5-5.1)
[2020-10-28 07:07] LABS: Anisocytosis 1+; Band Neutrophils 3 % (0-10); Eosinophils 3 % (0-10); Lymphocytes 53 % (20-55); Macrocytosis Slight; Platelet Estimate Adequate; Segmented Neutrophils 35 % (50-85); Total Cells Counted 100
[2020-10-28] MEDS: INSULIN LISPRO 100 UNIT/ML SUBCUT SCH ×4 (07:11→20:33)
[2020-10-28] MEDS ORDERED: MAGNESIUM SULF RIDER 2 GM/50 ML PREMIX IV ONE (07:47)
[2020-10-28] MEDS: PANTOPRAZOLE 40 MG VIAL IV SCH ×2 (08:34→20:58)
[2020-10-28] MEDS ORDERED: METOCLOPRAMIDE 10 MG/2 ML VIAL IV SCH (09:50)
[2020-10-28] MEDS: PROMETHAZINE 25 MG/1 ML VIAL IM PRN ×3 (09:56→22:43)
[2020-10-28] MEDS ORDERED: METOCLOPRAMIDE 10 MG/2 ML VIAL IV PRN (11:40)
[2020-10-28] MEDS: HYDROmorphone 2 MG/1 ML VIAL IV PRN ×3 (14:10→22:42)
[2020-10-28] MEDS: ENOXAPARIN 40 MG/0.4 ML SYRINGE SUBCUT SCH (20:58)
[2020-10-29] MEDS: HYDROmorphone 2 MG/1 ML VIAL IV PRN ×5 (02:47→20:10)
[2020-10-29] MEDS: PROMETHAZINE 25 MG/1 ML VIAL IM PRN ×3 (06:01→17:06)
[2020-10-29 06:57] LABS: Basophils % 0.5 % (0.0-0.8); Eosinophils # 0.2 10*3/uL (0.0-0.87); Eosinophils % 2.9 % (0.00-10.9); Hematocrit 33.6 VOL% (35.7-47.0); Hemoglobin 10.3 GM/DL (12.0-16.0); Immature Granulocytes % 0.6 %; Immature Granulocytes Absolute 0.04 #; Lymphocytes # 3.4 10*3/uL (1.4-4.0); Lymphocytes % 55.3 % (21.3-54.2); Mean Corpuscular HGB Conc 30.7 GM/DL (32-36); Mean Corpuscular Volume 78.3 FL (87-102); Mean Platelet Volume 10.5 FL (9.6-12.0); Monocytes % 8.4 % (1.7-12.7); Neutrophils % 32.3 % (38.7-73.9); Platelet Count 152 T/CUMM (130-400); Red Blood Count 4.29 MC/CUMM (3.8-5.5); Red Cell Distribution Width 17.2 % (9.3-17.3); White Blood Count 6.2 T/CUMM (4-12)
[2020-10-29 07:20] LABS: Eosinophils 7 % (0-10); Lymphocytes 47 % (20-55); Segmented Neutrophils 34 % (50-85); Total Cells Counted 100
[2020-10-29 07:21] LABS: Hypochromasia 2+; Microcytosis 1+; Platelet Estimate Adequate
[2020-10-29 07:48] LABS: Calcium 7.9 MG/DL (8.5-10.1); Potassium 4.4 MMOL/L (3.5-5.1)
[2020-10-29] MEDS: INSULIN LISPRO 100 UNIT/ML SUBCUT SCH ×4 (09:52→21:01)
[2020-10-29] MEDS: PANTOPRAZOLE 40 MG VIAL IV SCH ×2 (10:56→20:12)
[2020-10-29] MEDS: SODIUM CHLOR 0.9% KCL 40 MEQ 40 MEQ/1,000 ML BAG IV SCH (12:01)
[2020-10-29] MEDS: CYCLOBENZAPRINE 10 MG TABLET PO SCH (20:10)
[2020-10-29] MEDS: GABAPENTIN 600 MG TABLET PO SCH (20:10)
[2020-10-29] MEDS: AMITRIPTYLINE 25 MG TABLET PO SCH (20:11)
[2020-10-29] MEDS: QUEtiapine 100 MG TABLET PO SCH (20:11)
[2020-10-29] MEDS: carvediloL 25 MG TABLET PO SCH (20:11)
[2020-10-29] MEDS: ENOXAPARIN 40 MG/0.4 ML SYRINGE SUBCUT SCH (20:11)
[2020-10-30] MEDS: SODIUM CHLORIDE 0.9% 1,000 ML IV SCH ×3 (01:23→12:11)
[2020-10-30] MEDS: HYDROmorphone 2 MG/1 ML VIAL IV PRN ×3 (03:55→19:47)
[2020-10-30 06:06] LABS: Basophils % 0.4 % (0.0-0.8); Eosinophils # 0.1 10*3/uL (0.0-0.87); Eosinophils % 2.6 % (0.00-10.9); Hematocrit 31.9 VOL% (35.7-47.0); Hemoglobin 9.6 GM/DL (12.0-16.0); Immature Granulocytes % 0.2 %; Immature Granulocytes Absolute 0.01 #; Lymphocytes # 2.5 10*3/uL (1.4-4.0); Lymphocytes % 46.9 % (21.3-54.2); Mean Corpuscular HGB Conc 30.1 GM/DL (32-36); Mean Corpuscular Volume 78.6 FL (87-102); Mean Platelet Volume 11.6 FL (9.6-12.0); Monocytes % 8.1 % (1.7-12.7); Neutrophils % 41.8 % (38.7-73.9); Platelet Count 137 T/CUMM (130-400); Red Blood Count 4.06 MC/CUMM (3.8-5.5); Red Cell Distribution Width 17.2 % (9.3-17.3); White Blood Count 5.3 T/CUMM (4-12)
[2020-10-30 06:33] LABS: Osmolality,Calculated 282.3 MOS/KG (273-304); Potassium 4.1 MMOL/L (3.5-5.1)
[2020-10-30] MEDS: GABAPENTIN 600 MG TABLET PO SCH ×2 (08:38→21:20)
[2020-10-30] MEDS: CYCLOBENZAPRINE 10 MG TABLET PO SCH ×2 (08:38→21:20)
[2020-10-30] MEDS: carvediloL 25 MG TABLET PO SCH ×2 (08:38→21:20)
[2020-10-30] MEDS: VENLAFAXINE XR 75 MG CAPSULE PO SCH (08:38)
[2020-10-30] MEDS: ASPIRIN EC 81 MG TABLET PO SCH (08:38)
[2020-10-30] MEDS: QUEtiapine 100 MG TABLET PO SCH ×3 (08:38→21:21)
[2020-10-30] MEDS: LOSARTAN 50 MG TABLET PO SCH (08:38)
[2020-10-30] MEDS: LEVOTHYROXINE 25 MCG TABLET PO SCH (08:38)
[2020-10-30] MEDS: PROMETHAZINE 25 MG/1 ML VIAL IM PRN (08:39)
[2020-10-30] MEDS: PANTOPRAZOLE 40 MG VIAL IV SCH ×2 (08:39→21:21)
[2020-10-30] MEDS: INSULIN LISPRO 100 UNIT/ML SUBCUT SCH ×4 (10:08→21:20)
[2020-10-30] MEDS: ONDANSETRON 4 MG/2 ML VIAL IV PRN (19:46)
[2020-10-30] MEDS: AMITRIPTYLINE 25 MG TABLET PO SCH (21:20)
[2020-10-30] MEDS: ENOXAPARIN 40 MG/0.4 ML SYRINGE SUBCUT SCH (21:20)
[2020-10-31] MEDS: SODIUM CHLORIDE 0.9% 1,000 ML IV SCH ×3 (05:26→16:04)
[2020-10-31 05:49] LABS: Basophils % 0.6 % (0.0-0.8); Eosinophils # 0.1 10*3/uL (0.0-0.87); Eosinophils % 2.3 % (0.00-10.9); Hematocrit 31.5 VOL% (35.7-47.0); Hemoglobin 9.7 GM/DL (12.0-16.0); Lymphocytes # 2.6 10*3/uL (1.4-4.0); Lymphocytes % 53.1 % (21.3-54.2); Mean Corpuscular HGB Conc 30.8 GM/DL (32-36); Mean Corpuscular Volume 78.2 FL (87-102); Mean Platelet Volume 10.6 FL (9.6-12.0); Monocytes % 9.3 % (1.7-12.7); Neutrophils % 34.7 % (38.7-73.9); Platelet Count 112 T/CUMM (130-400); Red Blood Count 4.03 MC/CUMM (3.8-5.5); Red Cell Distribution Width 17.2 % (9.3-17.3); White Blood Count 4.8 T/CUMM (4-12)
[2020-10-31 06:08] LABS: Calcium 8.5 MG/DL (8.5-10.1); Osmolality,Calculated 277.3 MOS/KG (273-304); Potassium 4.3 MMOL/L (3.5-5.1)
[2020-10-31 06:11] LABS: Eosinophils 4 % (0-10); Hypochromasia 1+; Lymphocytes 52 % (20-55); Microcytosis 1+; Segmented Neutrophils 40 % (50-85); Total Cells Counted 100
[2020-10-31 06:12] LABS: Anisocytosis 1+; Platelet Estimate Adequate; Target Cells Slight
[2020-10-31] MEDS: INSULIN LISPRO 100 UNIT/ML SUBCUT SCH ×3 (08:41→16:09)
[2020-10-31] MEDS: PANTOPRAZOLE 40 MG VIAL IV SCH (09:22)
[2020-10-31] MEDS: LEVOTHYROXINE 25 MCG TABLET PO SCH (09:25)
[2020-10-31] MEDS: QUEtiapine 100 MG TABLET PO SCH ×2 (09:25→14:27)
[2020-10-31] MEDS: GABAPENTIN 600 MG TABLET PO SCH (09:25)
[2020-10-31] MEDS: ONDANSETRON 4 MG/2 ML VIAL IV PRN (09:25)
[2020-10-31] MEDS: LOSARTAN 50 MG TABLET PO SCH (09:25)
[2020-10-31] MEDS: CYCLOBENZAPRINE 10 MG TABLET PO SCH (09:25)
[2020-10-31] MEDS: carvediloL 25 MG TABLET PO SCH (09:25)
[2020-10-31] MEDS: ASPIRIN EC 81 MG TABLET PO SCH (09:25)
[2020-10-31] MEDS: VENLAFAXINE XR 75 MG CAPSULE PO SCH (09:25)
[2020-10-31] MEDS: HYDROmorphone 2 MG/1 ML VIAL IV PRN (09:28)
[2020-10-31] MEDS ORDERED: POLYETHYLENE GLYCOL POWDER 17 GM PACK PO SCH (13:00)
[2020-10-31 15:57] VITALS: BP 125/71
[2020-10-31] MEDS ORDERED: METOCLOPRAMIDE 5 MG TABLET PO SCH (16:30)
== END 2020-10-31 17:30 | disposition home or self-care (01) | DRG 389 ==
LOC: N.ED 07:49 → SUATTDRO 14:14 → N.EDINP 14:14 → N.3E 14:49
PROVIDERS: ADMIT Emergency Medicine; ATTEND Internal Medicine

== ENCOUNTER 2021-08-29 05:15 | Observation (INO) ==
[2021-08-29] MEDS ORDERED: SODIUM CHLORIDE 0.9% 500 ML IV STA ×2 (05:30→06:36)
[2021-08-29 05:50] LABS: Basophils % 0.5 % (0.0-0.8); Eosinophils # 0.2 10*3/uL (0.0-0.87); Eosinophils % 2.4 % (0.00-10.9); Hematocrit 36.6 VOL% (35.7-47.0); Hemoglobin 11.2 GM/DL (12.0-16.0); Immature Granulocytes % 0.4 %; Immature Granulocytes Absolute 0.03 #; Lymphocytes # 3.4 10*3/uL (1.4-4.0); Lymphocytes % 44.5 % (21.3-54.2); Mean Corpuscular HGB Conc 30.6 GM/DL (32-36); Mean Corpuscular Volume 80.1 FL (87-102); Mean Platelet Volume 10.8 FL (9.6-12.0); Monocytes % 8.2 % (1.7-12.7); Platelet Count 155 T/CUMM (130-400); Red Blood Count 4.57 MC/CUMM (3.8-5.5); Red Cell Distribution Width 16.4 % (9.3-17.3); White Blood Count 7.6 T/CUMM (4-12)
[2021-08-29 05:59] LABS: INR 1.1
[2021-08-29 06:17] LABS: Alanine Aminotransferase 24 U/L (13-56); Albumin 3.2 G/DL (3.4-5.0); Alkaline Phosphatase 64 U/L (45-117); Aspartate Amino Transferase 22 U/L (0-37); Blood Urea Nitrogen 17 MG/DL (7-18); Calcium 8.7 MG/DL (8.5-10.1); Carbon Dioxide 27 MMOL/L (21-32); Estimated Glom Filtration Rate 30 ML/MIN; Glucose 134 MG/DL (74-106); Osmolality,Calculated 286.1 MOS/KG (273-304); Potassium 3.7 MMOL/L (3.5-5.1); Sodium 142 MMOL/L (136-145); Total Protein 7.7 G/DL (6.4-8.2)
[2021-08-29] MEDS ORDERED: SODIUM CHLORIDE 0.9% 1,000 ML IV STA ×2 (06:41→09:30)
[2021-08-29 08:55] LABS: Hyaline Casts,Urine 145 /LPF (0-3); Mucus,Urine Few /LPF (Occasional); RBC,Urine 2 /HPF (0-4); Squamous Epithelial Cell,Urine Occasional /HPF (0-10)
[2021-08-29 08:56] LABS: Barbiturates Screen,Urine Negative (Negative); Benzodiazepines Screen,Urine Negative (Negative); Bilirubin,Urine Negative (Negative); Blood, Urine Negative (Negative); Cannabinoid Screen,Urine Negative (Negative); Glucose,Urine (UA) Negative (Negative); Ketones,Urine Negative (Negative); Nitrite,Urine Negative (Negative); Opiate Screen,Urine Positive (Negative); Phencyclidine Screen,Urine Negative (Negative); Protein,Urine Negative; Urine Appearance Clear (Clear); Urine Color Yellow (Yellow); Urine Specific Gravity 1.025 (1.001-1.035); Urine Urobilinogen 0.2 EU/DL (<2.0); Urine pH 5.5 (4.5-8.0)
[2021-08-29] MEDS ORDERED: MAGNESIUM SULF RIDER 2 GM/50 ML PREMIX IV ONE (10:19)
[2021-08-29] MEDS ORDERED: ONDANSETRON 4 MG/2 ML VIAL IV PRN (10:35)
[2021-08-29] MEDS ORDERED: GLUCAGON 1 MG VIAL IM PRN (10:35)
[2021-08-29] MEDS ORDERED: DEXTROSE 50% 25 GM/50 ML VIAL IV PRN (10:35)
[2021-08-29] MEDS ORDERED: DEXTROSE 10% 250 ML BAG IV PRN (10:35)
[2021-08-29] MEDS ORDERED: levETIRAcetam 500 MG TABLET PO STA (10:38)
[2021-08-29] MEDS ORDERED: ENOXAPARIN 40 MG/0.4 ML SYRINGE SUBCUT SCH (11:00)
[2021-08-29] MEDS: LACTATED RINGERS 1,000 ML IV SCH (11:41)
[2021-08-29] MEDS: levETIRAcetam 500 MG TABLET PO SCH ×2 (11:41→20:53)
[2021-08-29] MEDS: INSULIN LISPRO 100 UNIT/ML SUBCUT SCH ×3 (11:42→20:55)
[2021-08-29] MEDS: ACETAMINOPHEN 325 MG TABLET PO PRN ×2 (15:56→20:52)
[2021-08-29] MEDS ORDERED: IBUPROFEN 600 MG TABLET PO PRN (17:26)
[2021-08-29] MEDS: GABAPENTIN 600 MG TABLET PO SCH (20:52)
[2021-08-29] MEDS: QUEtiapine 100 MG TABLET PO SCH (20:53)
[2021-08-29] MEDS ORDERED: AMITRIPTYLINE 25 MG TABLET PO SCH (21:00)
[2021-08-30] MEDS: LACTATED RINGERS 1,000 ML IV SCH (01:36)
[2021-08-30] MEDS ORDERED: LEVOTHYROXINE 25 MCG TABLET PO SCH (06:30)
[2021-08-30 06:41] LABS: Basophils % 0.5 % (0.0-0.8); Eosinophils # 0.1 10*3/uL (0.0-0.87); Eosinophils % 2.6 % (0.00-10.9); Hematocrit 30.5 VOL% (35.7-47.0); Hemoglobin 9.6 GM/DL (12.0-16.0); Immature Granulocytes Absolute 0.04 #; Lymphocytes # 2.3 10*3/uL (1.4-4.0); Lymphocytes % 53.9 % (21.3-54.2); Mean Corpuscular HGB Conc 31.5 GM/DL (32-36); Mean Corpuscular Volume 77.4 FL (87-102); Mean Platelet Volume 10.6 FL (9.6-12.0); Monocytes % 8.3 % (1.7-12.7); Neutrophils % 33.7 % (38.7-73.9); Platelet Count 116 T/CUMM (130-400); Red Blood Count 3.94 MC/CUMM (3.8-5.5); White Blood Count 4.2 T/CUMM (4-12)
[2021-08-30 06:51] LABS: Calcium 7.9 MG/DL (8.5-10.1); Osmolality,Calculated 285.3 MOS/KG (273-304); Potassium 3.6 MMOL/L (3.5-5.1)
[2021-08-30] MEDS ORDERED: CYCLOBENZAPRINE 10 MG TABLET PO PRN (07:13)
[2021-08-30 07:22] LABS: Atypical Lymphocytes Few; Eosinophils 3 % (0-10); Hypochromia 2+; Lymphocytes 55 % (20-55); Segmented Neutrophils 31 % (50-85); Total Cells Counted 100
[2021-08-30 07:23] LABS: Microcytosis 1+; Ovalocytes Slight; Platelet Estimate Decreased; Target Cells Few
[2021-08-30 07:33] VITALS: BP 120/72
[2021-08-30] MEDS ORDERED: ASPIRIN EC 81 MG TABLET PO SCH (09:00)
[2021-08-30] MEDS ORDERED: VENLAFAXINE XR 75 MG CAPSULE PO SCH (09:00)
[2021-08-30] MEDS: GABAPENTIN 600 MG TABLET PO SCH (09:05)
[2021-08-30] MEDS: levETIRAcetam 500 MG TABLET PO SCH (09:05)
[2021-08-30] MEDS: QUEtiapine 100 MG TABLET PO SCH (09:05)
[2021-08-30] MEDS: INSULIN LISPRO 100 UNIT/ML SUBCUT SCH (09:05)
== END 2021-08-30 10:45 | disposition home or self-care (01) ==
LOC: N.3E 05:15 → N.ED 05:15 → N.3E 11:18
PROVIDERS: ADMIT Internal Medicine; ATTEND Internal Medicine

== ENCOUNTER 2022-01-10 08:48 | Inpatient (IN) ==
[2022-01-10 09:17] LABS: Basophils % 0.3 % (0.0-0.8); Eosinophils # 0.1 10*3/uL (0.0-0.87); Eosinophils % 1.8 % (0.00-10.9); Hematocrit 33.2 VOL% (35.7-47.0); Hemoglobin 10.3 GM/DL (12.0-16.0); Immature Granulocytes % 0.3 %; Immature Granulocytes Absolute 0.02 #; Lymphocytes # 2.4 10*3/uL (1.4-4.0); Lymphocytes % 39.1 % (21.3-54.2); Mean Corpuscular Volume 80.4 FL (87-102); Mean Platelet Volume 11.1 FL (9.6-12.0); Monocytes # 0.5 10*3/uL (0.11-0.8); Monocytes % 8.3 % (1.7-12.7); Neutrophils % 50.2 % (38.7-73.9); Platelet Count 120 T/CUMM (130-400); Red Blood Count 4.13 MC/CUMM (3.8-5.5); Red Cell Distribution Width 16.2 % (9.3-17.3); White Blood Count 6.1 T/CUMM (4-12)
[2022-01-10] MEDS ORDERED: NALOXONE 0.4 MG/ML VIAL ONE (09:18)
[2022-01-10] MEDS ORDERED: SODIUM CHLORIDE 0.9% 1,000 ML IV STA ×2 (09:24→09:56)
[2022-01-10] MEDS ORDERED: NALOXONE 0.4 MG/ML VIAL IV STA (09:24)
[2022-01-10 09:57] LABS: Platelet Estimate Adequate
[2022-01-10 09:58] LABS: Anisocytosis 1+; Ovalocytes Few
[2022-01-10 10:09] LABS: Alanine Aminotransferase 15 U/L (13-56); Alkaline Phosphatase 51 U/L (45-117); Aspartate Amino Transferase 21 U/L (0-37); Blood Urea Nitrogen 18 MG/DL (7-18); Calcium 8.8 MG/DL (8.5-10.1); Carbon Dioxide 28 MMOL/L (21-32); Chloride 104 MMOL/L (98-107); Glucose 160 MG/DL (74-106); Osmolality,Calculated 283.4 MOS/KG (273-304); Potassium 3.3 MMOL/L (3.5-5.1); Sodium 140 MMOL/L (136-145); Total Protein 7.3 G/DL (6.4-8.2)
[2022-01-10 11:04] LABS: Urine Appearance Clear (Clear); Urine Color Yellow (Yellow)
[2022-01-10 11:05] LABS: Bilirubin,Urine Small mg/dL (Negative); Blood, Urine Negative (Negative); Glucose,Urine (UA) Negative (Negative); Ketones,Urine 15 mg/dL (Negative); Nitrite,Urine Negative (Negative); Protein,Urine Trace mg/dL (Negative); Urine Specific Gravity 1.025 (1.001-1.035); Urine pH 6.5 (4.5-8.0)
[2022-01-10 11:06] LABS: Mucus,Urine Occasional /LPF (Occasional); Squamous Epithelial Cell,Urine Occasional /HPF (0-10)
[2022-01-10 11:15] LABS: Barbiturates Screen,Urine Negative (Negative); Benzodiazepines Screen,Urine Negative (Negative); Cannabinoid Screen,Urine Negative (Negative); Opiate Screen,Urine Positive (Negative); Phencyclidine Screen,Urine Negative (Negative)
[2022-01-10] MEDS ORDERED: DEXTROSE 10% 250 ML BAG IV PRN (12:42)
[2022-01-10] MEDS ORDERED: GLUCAGON 1 MG VIAL IM PRN (12:42)
[2022-01-10] MEDS ORDERED: LACTATED RINGERS 1,000 ML IV SCH (13:00)
[2022-01-10 13:07] LABS: Arterial Base Excess iSTAT 0 MMOL/L (-2.5-2.5); Arterial Bicarbonate iSTAT 26.9 MMOL/L (20-26); Arterial O2 Saturation iSTAT 97 % (95-100); Arterial PCO2 iSTAT 54 MM HG (35-48); Arterial PO2 iSTAT 100 MM HG (80-95); Arterial Total CO2 iSTAT 29 MMO/L (23-27); Arterial pH iSTAT 7.302 (7.35-7.45)
[2022-01-10] MEDS: ENOXAPARIN 40 MG/0.4 ML SYRINGE SUBCUT SCH (14:18)
[2022-01-11 01:27] LABS: Basophils % 0.5 % (0.0-0.8); Eosinophils # 0.1 10*3/uL (0.0-0.87); Eosinophils % 1.8 % (0.00-10.9); Hematocrit 33.1 VOL% (35.7-47.0); Hemoglobin 10.2 GM/DL (12.0-16.0); Immature Granulocytes % 0.4 %; Immature Granulocytes Absolute 0.02 #; Lymphocytes # 2.6 10*3/uL (1.4-4.0); Lymphocytes % 47.2 % (21.3-54.2); Mean Corpuscular HGB Conc 30.8 GM/DL (32-36); Mean Corpuscular Volume 80.5 FL (87-102); Mean Platelet Volume 12.5 FL (9.6-12.0); Monocytes # 0.4 10*3/uL (0.11-0.8); Neutrophils % 42.1 % (38.7-73.9); Platelet Count 89 T/CUMM (130-400); Red Blood Count 4.11 MC/CUMM (3.8-5.5); Red Cell Distribution Width 16.4 % (9.3-17.3); White Blood Count 5.5 T/CUMM (4-12)
[2022-01-11 01:46] LABS: Platelet Estimate Decreased
[2022-01-11 01:58] LABS: Alanine Aminotransferase 15 U/L (13-56); Albumin 2.7 G/DL (3.4-5.0); Alkaline Phosphatase 48 U/L (45-117); Aspartate Amino Transferase 20 U/L (0-37); Bilirubin,Total < 0.39 MG/DL (0.20-1.00); Blood Urea Nitrogen 17 MG/DL (7-18); Calcium 8.4 MG/DL (8.5-10.1); Carbon Dioxide 24 MMOL/L (21-32); Chloride 107 MMOL/L (98-107); Glucose 153 MG/DL (74-106); Osmolality,Calculated 281.5 MOS/KG (273-304); Potassium 3.2 MMOL/L (3.5-5.1); Sodium 139 MMOL/L (136-145); Total Protein 6.8 G/DL (6.4-8.2)
[2022-01-11] MEDS ORDERED: MAGNESIUM SULF RIDER 4 GM/100 ML PREMIX IV PRN (05:25)
[2022-01-11] MEDS ORDERED: MAGNESIUM SULF RIDER 2 GM/50 ML PREMIX IV PRN (05:25)
[2022-01-11] MEDS: POTASSIUM CHLORIDE 20 MEQ TABLET PO PRN ×4 (05:38→13:50)
[2022-01-11] MEDS: SODIUM CHLORIDE 0.9% 1,000 ML IV SCH ×2 (05:38→13:50)
[2022-01-11] MEDS ORDERED: POTASSIUM CHLORIDE RIDER 10 MEQ/100 ML PREMIX IV PRN (07:45)
[2022-01-11] MEDS ORDERED: LACTATED RINGERS 1,000 ML IV ONE (07:48)
[2022-01-11] MEDS: ACETAMINOPHEN 325 MG TABLET PO PRN (09:33)
[2022-01-11] MEDS: ENOXAPARIN 40 MG/0.4 ML SYRINGE SUBCUT SCH (12:00)
[2022-01-11] MEDS ORDERED: THIAMINE INJ 100 MG, FOLIC ACID INJ 1 MG, MULTIVITAMIN INJ 10 ML in SODIUM CHLORIDE 0.9... IV ONE (13:00)
[2022-01-11] MEDS: levETIRAcetam 500 MG TABLET PO SCH ×2 (13:50→22:19)
[2022-01-11] MEDS: DIVALPROEX ER 250 MG TABLET PO SCH (21:18)
[2022-01-12 00:21] LABS: Calcium 8.2 MG/DL (8.5-10.1); Osmolality,Calculated 277.7 MOS/KG (273-304); Potassium 4.1 MMOL/L (3.5-5.1)
[2022-01-12 01:45] LABS: Basophils % 0.3 % (0.0-0.8); Eosinophils # 0.1 10*3/uL (0.0-0.87); Eosinophils % 2.1 % (0.00-10.9); Hematocrit 28.8 VOL% (35.7-47.0); Immature Granulocytes % 1.3 %; Immature Granulocytes Absolute 0.05 #; Lymphocytes % 51.8 % (21.3-54.2); Mean Corpuscular HGB Conc 31.3 GM/DL (32-36); Mean Corpuscular Volume 79.6 FL (87-102); Mean Platelet Volume 10.7 FL (9.6-12.0); Monocytes # 0.4 10*3/uL (0.11-0.8); Monocytes % 10.5 % (1.7-12.7); Red Blood Count 3.62 MC/CUMM (3.8-5.5); Red Cell Distribution Width 16.3 % (9.3-17.3); White Blood Count 3.9 T/CUMM (4-12)
[2022-01-12 01:46] LABS: Platelet Count 94 T/CUMM (130-400)
[2022-01-12] MEDS: ACETAMINOPHEN 325 MG TABLET PO PRN ×2 (02:11→09:34)
[2022-01-12] MEDS: LOPERAMIDE 2 MG CAPSULE PO PRN ×2 (02:44→09:35)
[2022-01-12 03:16] LABS: Atypical Lymphocytes Few; Eosinophils 4 % (0-10); Lymphocytes 45 % (20-55); Metamyelocytes 1 %; Myelocytes 1 %; Reactive Lymphocytes 1+; Total Cells Counted 100
[2022-01-12 03:17] LABS: Hypochromia 1+; Platelet Estimate Decreased
[2022-01-12 04:14] LABS: Arterial Base Excess iSTAT 0 MMOL/L (-2.5-2.5); Arterial Bicarbonate iSTAT 24.2 MMOL/L (20-26); Arterial O2 Saturation iSTAT 96 % (95-100); Arterial PCO2 iSTAT 36 MM HG (35-48); Arterial PO2 iSTAT 76 MM HG (80-95); Arterial Total CO2 iSTAT 25 MMO/L (23-27)
[2022-01-12] MEDS: LEVOTHYROXINE 25 MCG TABLET PO SCH (06:07)
[2022-01-12] MEDS: SODIUM CHLORIDE 0.9% 1,000 ML IV SCH (09:33)
[2022-01-12] MEDS: DIVALPROEX ER 250 MG TABLET PO SCH ×2 (09:34→20:57)
[2022-01-12] MEDS: ONDANSETRON 4 MG/2 ML VIAL IV PRN ×2 (09:34→20:58)
[2022-01-12] MEDS: levETIRAcetam 500 MG TABLET PO SCH ×2 (09:43→21:07)
[2022-01-12] MEDS ORDERED: DICLOFENAC 1% GEL 100 GM TUBE TOP PRN (11:16)
[2022-01-12] MEDS ORDERED: DICYCLOMINE 10 MG CAPSULE PO PRN (11:16)
[2022-01-12] MEDS ORDERED: GABAPENTIN 600 MG TABLET PO SCH (11:30)
[2022-01-12] MEDS: POTASSIUM CHLORIDE 10 MEQ TABLET PO SCH ×2 (11:46→22:00)
[2022-01-12] MEDS: NON-FORMULARY MEDICATION (Liraglutide [Victoza 2-Pak] 0.6 MG/0.1 ML pen injector) SUBCUT SCH (11:46)
[2022-01-12] MEDS: LACTULOSE 20 GM/30 ML UDCUP PO SCH ×2 (11:46→17:02)
[2022-01-12] MEDS: carvediloL 25 MG TABLET PO SCH ×2 (11:46→20:55)
[2022-01-12] MEDS ORDERED: oxyCODONE/ACETAMINOPHEN 5-325 MG TABLET PO PRN (11:49)
[2022-01-12] MEDS: VENLAFAXINE XR 75 MG CAPSULE PO SCH (20:55)
[2022-01-12] MEDS: GABAPENTIN 600 MG TABLET PO SCH (20:56)
[2022-01-12] MEDS: POTASSIUM CHLORIDE 20 MEQ TABLET PO PRN (20:56)
[2022-01-12] MEDS ORDERED: MONTELUKAST 10 MG TABLET PO SCH (21:00)
[2022-01-12] MEDS ORDERED: AMITRIPTYLINE 25 MG TABLET PO SCH (21:00)
[2022-01-13 01:17] LABS: Basophils % 0.2 % (0.0-0.8); Eosinophils # 0.1 10*3/uL (0.0-0.87); Eosinophils % 2.3 % (0.00-10.9); Hematocrit 28.8 VOL% (35.7-47.0); Hemoglobin 8.9 GM/DL (12.0-16.0); Immature Granulocytes % 1.1 %; Lymphocytes # 1.9 10*3/uL (1.4-4.0); Lymphocytes % 43.9 % (21.3-54.2); Mean Corpuscular HGB Conc 30.9 GM/DL (32-36); Mean Corpuscular Volume 80.7 FL (87-102); Mean Platelet Volume 10.5 FL (9.6-12.0); Monocytes # 0.5 10*3/uL (0.11-0.8); Monocytes % 11.5 % (1.7-12.7); Platelet Count 97 T/CUMM (130-400); Red Blood Count 3.57 MC/CUMM (3.8-5.5); Red Cell Distribution Width 16.7 % (9.3-17.3); White Blood Count 4.4 T/CUMM (4-12)
[2022-01-13 01:18] LABS: Immature Granulocytes Absolute 0.05 #
[2022-01-13 01:35] LABS: Alanine Aminotransferase 17 U/L (13-56); Albumin 2.6 G/DL (3.4-5.0); Alkaline Phosphatase 53 U/L (45-117); Aspartate Amino Transferase 23 U/L (0-37); Bilirubin,Total < 0.39 MG/DL (0.20-1.00); Blood Urea Nitrogen 8 MG/DL (7-18); Calcium 8.3 MG/DL (8.5-10.1); Carbon Dioxide 23 MMOL/L (21-32); Chloride 112 MMOL/L (98-107); Glucose 146 MG/DL (74-106); Osmolality,Calculated 279.4 MOS/KG (273-304); Potassium 4.1 MMOL/L (3.5-5.1); Sodium 140 MMOL/L (136-145); Total Protein 6.3 G/DL (6.4-8.2)
[2022-01-13] MEDS: LACTULOSE 20 GM/30 ML UDCUP PO SCH ×3 (03:01→12:41)
[2022-01-13] MEDS: LEVOTHYROXINE 25 MCG TABLET PO SCH (05:57)
[2022-01-13] MEDS ORDERED: ASPIRIN EC 325 MG TABLET PO SCH (09:00)
[2022-01-13] MEDS ORDERED: LOSARTAN 50 MG TABLET PO SCH (09:00)
[2022-01-13] MEDS ORDERED: PANTOPRAZOLE 40 MG TABLET PO SCH (09:00)
[2022-01-13] MEDS ORDERED: hydroCHLOROthiazide 25 MG TABLET PO SCH (09:00)
[2022-01-13] MEDS: DIVALPROEX ER 250 MG TABLET PO SCH (09:58)
[2022-01-13] MEDS: GABAPENTIN 600 MG TABLET PO SCH (09:59)
[2022-01-13] MEDS: levETIRAcetam 500 MG TABLET PO SCH (09:59)
[2022-01-13] MEDS: POTASSIUM CHLORIDE 10 MEQ TABLET PO SCH (10:00)
[2022-01-13] MEDS: carvediloL 25 MG TABLET PO SCH (10:00)
[2022-01-13] MEDS: VENLAFAXINE XR 75 MG CAPSULE PO SCH (10:00)
[2022-01-13] MEDS: NON-FORMULARY MEDICATION (Liraglutide [Victoza 2-Pak] 0.6 MG/0.1 ML pen injector) SUBCUT SCH (10:01)
[2022-01-13 13:15] VITALS: BP 143/88
== END 2022-01-13 14:45 | disposition home or self-care (01) | DRG 189 ==
LOC: N.ED 08:48 → N.EDINP 08:48 → OBSVTOIN 12:42 → SUATTDRO 12:42 → N.5E 15:36 → SUATTDRO 01-12 07:02
PROVIDERS: ADMIT Internal Medicine; ATTEND Internal Medicine